=== PATIENT | male | born 1950 | race Caucasian/White ===

== ENCOUNTER 2019-06-08 12:45 | Outpatient (CLI) | payer MEDICARE ==
--- NOTE | 2019-06-08 15:16 | NM ---
HEPATOBILIARY SCAN: HISTORY:Right upper quadrant abdominal pain. RADIOPHARMACEUTICAL: 5 mCi Technetium 99m Mebrofenin injected intravenously FINDINGS: There is normal tracer extraction by the liver with normal excretion into the biliary tracts and smal l bowel loops and normal filling of the gallbladder. The calculated gallbladder ejection fraction measures 80%. (Ensure protocol not used due to emptying gallbladder at the end of the first hour images) IMPRESSION:Normal exam.
== END 2019-06-08 12:46 | disposition home or self-care (01) ==
LOC: NM 12:45
DX: R10.11 Right upper quadrant pain (principal)
CPT/HCPCS: 78227; A9537

== ENCOUNTER 2019-06-13 11:03 | Outpatient (CLI) | payer MEDICARE ==
--- NOTE | 2019-06-13 15:21 | NM ---
Exam: Whole body bone scan: HISTORY: Sternal pain for 6 months FINDINGS: Patient was injected with 31 mCi technetium 99m MDP intravenously. Whole body and spot images of the bony skeleton are performed. There is some hazy poorly defined increased activity noted anteriorly in the lower mid neck, nonspecific possibly free technetium within the thyroid gland. I do not think that this involves the bony structures. There is normal activity within the sternum. Bilateral total knee replacement changes. Bilateral renal and bladder activity. Mild degenerative changes in arina th A/C joints. Minimal increased activity in the right hip joint. IMPRESSION: Some nonspecific hazy increased activity in the anterior neck, nonspecific possibly some free technet ium within the thyroid gland. Mild increased activity in the A/C joints and right hip joint region evidence for arthrosis or degene rative change. Evidence for bilateral knee replacement. No evidence for abnormal increased activity in the region of the sternum.
== END 2019-06-13 11:04 | disposition home or self-care (01) ==
LOC: NM 11:03
PROVIDERS: ATTEND Internal Medicine Critical Care Medicine
DX: R07.2 Precordial pain (principal); Z96.653 Presence of artificial knee joint, bilateral
CPT/HCPCS: 78306; A9503

== ENCOUNTER 2019-08-16 13:35 | Outpatient (CLI) | payer MEDICARE ==
[2019-08-16 14:52] LABS: #Basophils 0.1 thou/uL (0.0-0.2); #Eosinphils 0.2 thou/uL (0.0-0.7); #Lymphocytes 2.3 thou/uL (1.20-3.40); #Neutrophils 5.7 thou/uL (1.40-6.50); %Basophils 0.6 % (0.0-1.0); %Eosinophils 1.9 % (0.0-10.0); %Monocytes 10.7 % (0.0-10.0); %Neutrophils 61.7 % (42.0-75.0); Hemoglobin 17.5 g/dL (14.0-18.0); Mean Corpuscular HGB CONC 33.7 g/dL (32.0-36.0); Mean Corpuscular Hemoglobin 33.4 pg (27.0-31.0); Mean Corpuscular Volume 99.1 fL (78.0-98.0); Mean Platelet Volume 7.4 fL (7.4-10.4); Platelet Count 203 thou/uL (130-400); RBC Distribution Width 12.4 % (11.5-14.5); Red Blood Cell (RBC) Count 5.24 mill/uL (4.70-6.10); White Blood Cell (WBC) Count 9.2 thou/uL (4.8-10.8)
[2019-08-16 15:16] LABS: ALT (SGPT) 26 U/L (8-55); AST (SGOT) 20 U/L (5-34); Albumin 4.8 g/dL (3.4-4.8); Alkaline Phosphatase 79 U/L (40-110); Anion Gap 13 mmol/L (10-20); BUN (Urea Nitrogen) 19 mg/dL (8.4-25.7); Bilirubin, Total 0.7 mg/dL (0.2-1.2); Calc. Creatinine Clearance 0 mL/min (70-130); Carbon Dioxide 29 mmol/L (23-31); Chloride 101 mmol/L (98-107); Estimated GFR-MDRD 60; Globulin 2.7 g/dL (2.4-3.5); Glucose 86 mg/dL (80-115); Potassium 4.3 mmol/L (3.5-5.1); Protein, Total 7.5 g/dL (5.8-8.1); Sodium 139 mmol/L (136-145)
== END 2019-08-16 13:36 | disposition home or self-care (01) ==
LOC: LABBT 13:35
PROVIDERS: ATTEND Internal Medicine Cardiovascular Disease
DX: Z01.812 Encounter for preprocedural laboratory examination (principal); R94.39 Abnormal result of other cardiovascular function study
CPT/HCPCS: 80053; 85025

== ENCOUNTER → 2019-08-17 | Day surgery (SDC) | payer MEDICARE ==
[2019-08-16 13:58] VITALS: BMI 31.6
[~2019-08-17] MED LIST: Fentanyl 100 MCG/2 ML VIAL ONE; Heparin (Artline) 1,000 ML ONE; Iopamidol 370 76% 100 ML VIAL ONE; Lidocaine 1% (PF) 30 ML VIAL ONE; Midazolam HCl 2 mg/2 ml Vial ONE
== END ==
LOC: CCL 09:44
PROVIDERS: ATTEND Internal Medicine Cardiovascular Disease
PROC: 4A023N7 Measurement of Cardiac Sampling and Pressure, Left Heart, Percutaneous Approach (ICD-10-PCS; principal; 2019-08-17)
PROC: B2111ZZ Fluoroscopy of Multiple Coronary Arteries using Low Osmolar Contrast (ICD-10-PCS; 2019-08-17)
DX: I25.10 Atherosclerotic heart disease of native coronary artery without angina pectoris (principal); E03.9 Hypothyroidism, unspecified; Z79.899 Other long term (current) drug therapy; Z88.0 Allergy status to penicillin
CPT/HCPCS: 76942; 93458; 99152; 99153; C1769; J1644; J2001; J2250; J3010; Q9967